=== PATIENT | female | born 1995 | race African-American/Black ===

== ENCOUNTER 2021-07-10 01:34 | Emergency (ER) | payer SELFPAY ==
[~2021-07-10] VITALS: Ht 154.9 cm; Wt 67.1 kg
[2021-07-10] MEDS ORDERED: KETOROLAC TROMETHAMINE 60 MG/2 ML VIAL IM ONE (02:00)
[2021-07-10] MEDS ORDERED: CYCLOBENZAPRINE10 MG PO (02:08)
[2021-07-10] MEDS ORDERED: KETOROLAC TROMETHAMINE 60 MG/2 ML VIAL ONE (02:10)
== END 2021-07-10 02:34 | disposition home or self-care (01) ==
LOC: FSED 01:55
DX: M54.6 Pain in thoracic spine (principal); M25.511 Pain in right shoulder; X50.1XXA Overexertion from prolonged static or awkward postures, initial encounter; Y92.008 Other place in unspecified non-institutional (private) residence as the place of occurrence of the external cause; F17.210 Nicotine dependence, cigarettes, uncomplicated
CPT/HCPCS: 99282; J1885